=== PATIENT | female | born 1975 | race Caucasian/White ===

== ENCOUNTER 2020-05-28 14:43 | Emergency (ER) | payer OTHER ==
[2020-05-28] MEDS ORDERED: ZOFRAN4 MG PO (18:17)
== END 2020-05-28 18:25 | disposition home or self-care (01) ==
LOC: ER1 14:43
DX: R11.0 Nausea (principal); I10 Essential (primary) hypertension; F17.210 Nicotine dependence, cigarettes, uncomplicated; Z20.828 Contact with and (suspected) exposure to other viral communicable diseases
CPT/HCPCS: 99283; U0002